=== PATIENT | female | born 1975 | race African-American/Black ===

== ENCOUNTER 2017-11-19 15:29 | Emergency (ER) | payer BC ==
--- NOTE | 2017-11-19 18:05 | RAD ---
RIGHT SHOULDER THREE VIEWS: 11/19/17 HISTORY: 42-year-old female with history of right shoulder pain following an injury lifting boxes. No fracture, dislocation or other significant acute osseous abnormality. Dextroscoliosis of the thora cic spine. IMPRESSION: No fracture or dislocation or other acute process of the right shoulder. Thoracic spine dextroscolios is. POS: ASHISH
== END 2017-11-19 18:23 | disposition home or self-care (01) ==
LOC: EDBD 15:29 → ERS 15:29
DX: M75.51 Bursitis of right shoulder (principal); I10 Essential (primary) hypertension; Z79.899 Other long term (current) drug therapy; X50.0XXA Overexertion from strenuous movement or load, initial encounter

== ENCOUNTER 2018-11-26 15:24 | Outpatient (CLI) | payer BC | END 2018-11-26 15:25 | disposition home or self-care (01) | LOC: BICMAMMO 15:24 | PROVIDERS: ATTEND Family Medicine | DX: Z12.31 Encounter for screening mammogram for malignant neoplasm of breast (principal); Z80.3 Family history of malignant neoplasm of breast; Z80.0 Family history of malignant neoplasm of digestive organs | CPT/HCPCS: 77063; 77067 ==

== ENCOUNTER 2020-03-21 15:02 | Outpatient (CLI) | payer BC ==
--- NOTE | 2020-03-21 16:51 | MMO ---
Bilateral MAMMO Bilat Screen [facility]. CLINICAL HISTORY: Patient is 44 years old and is seen for screening. The patient has the following family history of breast cancer: sister, malignant (generic). The patient has no personal history of cancer. The patient has a history of right needle biopsy - benign. VIEWS: The views performed were: bilateral craniocaudal with tomosynthesis and bilateral mediolateral oblique with tomosynthesis. FILMS COMPARED: The present examination has been compared to prior imaging studies performed at [facility] on 06/30/2014, 07/11/2015, 09/02/2017 and 11/26/2018. This study has been interpreted with the assistance of computer-aided detection. MAMMOGRAM FINDINGS: There are scattered fibroglandular densities. There are stable asymmetries seen in both breasts. There are no suspicious masses, suspicious calcifications, or new areas of architectural distortion. IMPRESSION: THERE IS NO MAMMOGRAPHIC EVIDENCE OF MALIGNANCY. A ROUTINE FOLLOW-UP MAMMOGRAM IN 1 YEAR IS RECOMMENDED. THE RESULTS OF THIS EXAM WERE SENT TO THE PATIENT. ACR BI-RADS Category 2 - Benign finding MAMMOGRAPHY NOTE: 1. A negative mammogram report should not delay a biopsy if a dominant of clinically suspicious mass is present. 2. Approximately 10% to 15% of breast cancers are not detected by mammography. 3. Adenosis and dense breasts may obscure an underlying neoplasm. Reported by: MILLICENT ARDON MD Electonically Signed: [id number]
== END 2020-03-21 15:03 | disposition home or self-care (01) ==
LOC: BICMAMMO 15:02
PROVIDERS: ATTEND Student in an Organized Health Care Education/Training Program
DX: Z12.31 Encounter for screening mammogram for malignant neoplasm of breast (principal); Z80.3 Family history of malignant neoplasm of breast; Z91.89 Other specified personal risk factors, not elsewhere classified
CPT/HCPCS: 77063; 77067

== ENCOUNTER 2020-10-28 14:02 | Outpatient (CLI) | payer BC ==
--- NOTE | 2020-10-28 15:32 | MRI ---
MRI Lower Ext Jt Rt WO Con History: Effusion. Pain Comparison: None Findings: Medial meniscus: Superior articular surface flap tear along with fraying and volume loss wi th gutter extrusion 4 mm. Lateral meniscus: Minimal radial oblique tear lateral meniscal body involving the free edge. ACL, PCL, MCL and LCL are all intact. Extensor mechanism: Quadriceps tendon, patella and patellar tendon are intact. Tibial tuberosity-troc hlear groove distance is normal. Cartilage: Patellofemoral compartment: Intact Medial compartment: Likely posterior weightbearing surface lateral aspect medial femoral condyle is a 50% chondral defect measuring up to 5 mm in transverse with a AP dimension of 8 mm. Lateral compartment: Low-grade chondral fraying posterior lateral tibial plateau. Soft tissues: Small joint effusion. Mild superolateral Hoffa's fat pad edema. Impression: 1. Superior articular surface flap tear body and posterior horn medial meniscus with meniscal body vo lume loss, 3 mm gutter extrusion, mild loss of hoop stress, and grade II chondromalacia with osteophyte formation. 2. Small reactive joint effusion without significant popliteal cyst. 3. Mild superolateral Hoffa's fat pad edema suggesting a component of patellar maltracking. 4. Minimal radial oblique tear lateral meniscal body involving the free edge.
== END 2020-10-28 14:03 | disposition home or self-care (01) ==
LOC: TBSIIMAG 14:02
PROVIDERS: ATTEND Family Medicine
DX: M25.461 Effusion, right knee (principal); S83.241A Other tear of medial meniscus, current injury, right knee, initial encounter; S83.281A Other tear of lateral meniscus, current injury, right knee, initial encounter; E88.89 Other specified metabolic disorders; R60.0 Localized edema; M94.261 Chondromalacia, right knee; M25.761 Osteophyte, right knee

== ENCOUNTER 2021-04-19 15:25 | Outpatient (CLI) | payer BC | END 2021-04-19 15:26 | disposition home or self-care (01) | LOC: BICMAMMO 15:25 | PROVIDERS: ATTEND Family Medicine | DX: Z12.31 Encounter for screening mammogram for malignant neoplasm of breast (principal); Z80.3 Family history of malignant neoplasm of breast | CPT/HCPCS: 77063; 77067 ==

== ENCOUNTER 2022-03-13 15:52 | Emergency (ER) | payer BC ==
[2022-03-13 17:01] LABS: Hemoglobin 15.2 g/dL (12.0-16.0); Mean Corpuscular Hemoglobin 31.8 pg (27.0-31.0); Mean Corpuscular Volume 90.8 fL (78.0-98.0); Mean Platelet Volume 8.2 fL (7.4-10.4); Platelet Count 216 thou/uL (130-400); RBC Distribution Width 12.2 % (11.5-14.5); Red Blood Cell (RBC) Count 4.78 mill/uL (4.20-5.40); White Blood Cell (WBC) Count 18.2 thou/uL (4.8-10.8)
[2022-03-13 17:15] LABS: Band 9 % (5-11); Lymphocytes 12 % (21-51); MDiff Complete? YES; Monocytes 7 % (0-10); Neutrophil 72 % (42-75); Platelet Morphology Comment Appears Adequate; RBC Morphology Normal
[2022-03-13 17:23] LABS: ALT (SGPT) 13 U/L (8-55); AST (SGOT) 18 U/L (5-34); Albumin 3.9 g/dL (3.5-5.0); Alkaline Phosphatase 98 U/L (40-110); Anion Gap 13 mmol/L (10-20); BUN (Urea Nitrogen) 16 mg/dL (7.0-18.7); Bilirubin, Total 0.8 mg/dL (0.2-1.2); Calc. Creatinine Clearance 0 mL/min (70-130); Calcium 9.2 mg/dL (7.8-10.44); Carbon Dioxide 26 mmol/L (22-29); Chloride 100 mmol/L (98-107); Globulin 4.7 g/dL (2.4-3.5); Glucose 94 mg/dL (70-105); Lipase 10 U/L (8-78); Protein, Total 8.6 g/dL (6.0-8.3); Sodium 136 mmol/L (136-145)
[2022-03-13] MEDS ORDERED: Acetaminophen 325 MG TAB ONE (19:14)
[2022-03-13 20:03] LABS: Bacteria/HPF None Seen HPF (None Seen); Bilirubin 1+ (Negative); Blood, Urine 2+ (Negative); Clarity Clear (Clear); Glucose, Urine (Dipstick) Normal (Negative); Ketone, Urine Greater than 150 mg/dL (Negative); Leukocyte Negative Leu/uL (Negative); Mucous/LPF 1+ LPF (<2+); Nitrite Negative (Negative); Protein, Urine (Dipstick) 70 mg/dL (Neg-Trace); Specific Gravity, Urine 1.037 (1.002-1.036); Squamous Epithelial 0-3 HPF (0-3); Urobilinogen 3 mg/dL (Less than 2); WBC/HPF 0-3 HPF (0-3)
[2022-03-13] MEDS ORDERED: Ketorolac Tromethamine 30 MG/ML VIAL ONE (20:29)
[2022-03-13 23:44] LABS: SARS-CoV-2 PCR by NAA Not Detected (NotDetected)
== END 2022-03-13 22:18 | disposition home or self-care (01) ==
LOC: ERS 15:52
DX: J11.1 Influenza due to unidentified influenza virus with other respiratory manifestations (principal); I10 Essential (primary) hypertension
CPT/HCPCS: 36415; 71045; 80053; 81003; 81015; 83605; 83690; 85025; 87040; 87804; 93005; 96374; J1885; U0003; U0005

== ENCOUNTER 2022-09-25 11:08 | Emergency (ER) | payer BC | END 2022-09-25 12:58 | disposition home or self-care (01) | LOC: ERS 11:08 | DX: M79.605 Pain in left leg (principal); I10 Essential (primary) hypertension ==

== ENCOUNTER 2023-03-27 16:25 | Emergency (ER) | payer BC ==
[2023-03-27 16:53] LABS: #Basophils 0.1 thou/uL (0.0-0.2); #Eosinphils 0.1 thou/uL (0.0-0.7); #Monocytes 1.1 thou/uL (0.11-0.59); #Neutrophils 6.5 thou/uL (1.40-6.50); %Basophils 0.6 % (0.0-1.0); %Eosinophils 0.6 % (0.0-10.0); %Lymphocytes 28.8 % (21.0-51.0); %Monocytes 10.5 % (0.0-10.0); %Neutrophils 59.3 % (42.0-75.0); Hemoglobin 13.7 g/dL (12.0-16.0); Mean Corpuscular HGB CONC 33.5 g/dL (32.0-36.0); Mean Corpuscular Hemoglobin 29.5 pg (27.0-31.0); Mean Platelet Volume 10.2 fL (7.4-10.4); Platelet Count 239 10x3/uL (130-400); RBC Distribution Width 12.8 % (11.5-14.5); Red Blood Cell (RBC) Count 4.65 mill/uL (4.20-5.40); White Blood Cell (WBC) Count 10.9 10x3/uL (4.8-10.8)
[2023-03-27 17:16] LABS: ALT (SGPT) 9 U/L (8-55); AST (SGOT) 19 U/L (5-34); Albumin 4.1 g/dL (3.5-5.0); Alkaline Phosphatase 112 U/L (40-110); Anion Gap 12 mmol/L (10-20); BUN (Urea Nitrogen) 18 mg/dL (7.0-18.7); Bilirubin, Total 0.6 mg/dL (0.2-1.2); Calc. Creatinine Clearance 0 mL/min (70-130); Calcium 9.4 mg/dL (7.8-10.44); Carbon Dioxide 27 mmol/L (22-29); Chloride 102 mmol/L (98-107); Estimated GFR 73; Globulin 4.4 g/dL (2.4-3.5); Glucose 92 mg/dL (70-105); Potassium 3.2 mmol/L (3.5-5.1); Protein, Total 8.5 g/dL (6.0-8.3); Sodium 138 mmol/L (136-145)
== END 2023-03-27 19:11 | disposition home or self-care (01) ==
LOC: ERS 16:25
DX: L03.012 Cellulitis of left finger (principal); D72.829 Elevated white blood cell count, unspecified; I10 Essential (primary) hypertension
CPT/HCPCS: 10060; 36415; 80053; 83605; 85025

== ENCOUNTER 2023-04-19 15:12 | Outpatient (CLI) | payer BC | END 2023-04-19 15:13 | disposition home or self-care (01) | LOC: BICMAMMO 15:12 | PROVIDERS: ATTEND Student in an Organized Health Care Education/Training Program | DX: Z12.31 Encounter for screening mammogram for malignant neoplasm of breast (principal); Z80.3 Family history of malignant neoplasm of breast; Z91.89 Other specified personal risk factors, not elsewhere classified | CPT/HCPCS: 77063; 77067 ==

== ENCOUNTER 2025-07-28 14:48 | Outpatient (CLI) | payer BC | END 2025-07-28 14:49 | disposition home or self-care (01) | LOC: BICMAMMO 14:48 | DX: Z12.31 Encounter for screening mammogram for malignant neoplasm of breast (principal); Z80.3 Family history of malignant neoplasm of breast; Z91.89 Other specified personal risk factors, not elsewhere classified | CPT/HCPCS: 77063; 77067 ==